=== PATIENT | female | born 1990 | race Caucasian/White ===

== ENCOUNTER 2017-07-15 19:16 | Emergency (ER) | payer BC ==
[~2017-07-15] VITALS: Ht 162.6 cm; Wt 87.3 kg
[~2017-07-15 19:16] MED LIST: AMOXICILLIN 8751 TAB PO; NORCO 325 MG-51 TAB PO
[2017-07-15 19:34] VITALS: BP 101/59; TEMP 98.3
[2017-07-15] MEDS ORDERED: ZANTAC 7575 MG PO (19:39)
[2017-07-15] MEDS ORDERED: DESYREL 50MG50 MG PO (19:40)
[2017-07-15] MEDS ORDERED: LATUDA20 MG PO (19:40)
[2017-07-15] MEDS ORDERED: ZANTAC 150MG T150 MG PO (20:34)
[2017-07-15] MEDS ORDERED: LATUDA40 MG PO (20:34)
[2017-07-15] MEDS ORDERED: DESYREL 100MG100 MG PO (20:35)
[2017-07-15 21:28] LABS: BASO # 0.1 (0.0-0.2); BASO % 0.8 % (0.0-2.0); EOS # 0.1 (0.0-0.7); EOS % 0.6 % (0-4.0); GRAN # 8.9 (1.4-6.5); GRAN % 67.3 % (42.2-75.2); HEMATOCRIT 41.7 % (37.0-47.0); HEMOGLOBIN 13.9 g/dl (12.5-16.0); LYMPH # 3.1 (1.2-3.4); LYMPH % 23.6 % (20.0-51.0); MEAN CELL VOLUME 85 fl (80.0-100.0); MEAN CORPUSCULAR HEMOGLOBIN 28 pg (27.0-31.0); MEAN CORPUSCULAR HGB CONC 33 g/dl (33.0-37.0); MEAN PLATELET VOLUME 9.1 fl (7.4-10.4); MONO # 0.9 (0.1-0.6); MONO % 7.1 % (1.7-9.3); PLATELET COUNT 305 K/mm3 (130-400); RED BLOOD COUNT 4.93 M/mm3 (4.10-5.30); REDCELL DISTRIBUTION WIDTH-CV 12.4 % (11.5-14.5)
[2017-07-15 21:43] LABS: ALBUMIN 4.5 gm/dL (3.5-5.0); BILIRUBIN,TOTAL 0.5 mg/dL (0.0-1.0); CALCIUM 9.2 mg/dL (8.4-10.2); CREATININE, serum 0.75 mg/dL (0.52-1.25); POTASSIUM 3.9 mmol/L (3.4-5.0); TOTAL PROTEIN 7.9 gm/dL (6.4-8.2)
[2017-07-15] MEDS ORDERED: PROTONIX 40MG T40 MG PO (22:14)
[2017-07-15] MEDS ORDERED: ZOFRAN ODT4 MG PO (22:14)
[2017-07-15 23:03] VITALS: PULSE 92
== END 2017-07-15 23:06 | disposition home or self-care (01) ==
LOC: COL.ER 19:16
PROVIDERS: Emergency Medicine
DX: K29.70 Gastritis, unspecified, without bleeding (principal); F31.9 Bipolar disorder, unspecified; Z90.49 Acquired absence of other specified parts of digestive tract
CPT/HCPCS: J2405; J7030